=== PATIENT | male | born 1955 | race Caucasian/White ===

== ENCOUNTER 2023-11-07 14:38 | Emergency (ER) | payer OTHER ==
[~2023-11-07] VITALS: Ht 177.8 cm; Wt 80.3 kg
[2023-11-07 14:46] VITALS: BP 123/72; PULSE 93; RESP 17; TEMP 97.5; O2SAT 96
[2023-11-07] MEDS ORDERED: ALUMINUM HYD/MAG/SIMETHICONE 30 ML UDC PO ONE (15:20)
[2023-11-07] MEDS ORDERED: ONDANSETRON 4 MG ODT PO ONE (15:20)
== END 2023-11-07 16:38 | disposition left against medical advice (07) ==
LOC: MED 14:38
DX: R10.84 Generalized abdominal pain (principal); R19.7 Diarrhea, unspecified; R11.2 Nausea with vomiting, unspecified; F17.210 Nicotine dependence, cigarettes, uncomplicated
CPT/HCPCS: 99281; Q0162

== ENCOUNTER 2023-11-13 15:42 | Emergency (ER) | payer OTHER ==
[~2023-11-13] VITALS: Ht 180.3 cm; Wt 81.6 kg
[2023-11-13 16:13] VITALS: BP 124/67; PULSE 93; RESP 18; TEMP 98.7; O2SAT 95
[2023-11-13 17:23] LABS: APPEARANCE,URINE CLEAR (CLEAR); BILIRUBIN,URINE NEGATIVE (NEGATIVE); BLOOD, URINE NEGATIVE (NEGATIVE); COLOR,URINE YELLOW (YELLOW); LEUKOCYTE ESTERASE ,URINE NEGATIVE (NEGATIVE); NITRITE, URINE NEGATIVE (NEGATIVE); PROTEIN,URINE TRACE (NEGATIVE); UGLUCOSE NEGATIVE (NEGATIVE); UROBILINOGEN,URINE 0.2 EU/dL (0.2 - 1)
[2023-11-13] MEDS ORDERED: KETOROLAC 30 MG/ML VIAL IM ONE (17:55)
[2023-11-13 18:04] LABS: BASOPHILS # (AUTO) 0.1 K/uL (0.00-0.22); BASOPHILS % (AUTO) 0.4 % (0.0-2.0); EOSINOPHILS % (AUTO) 0.3 % (0.0-4.0); HEMATOCRIT 43.9 % (36-52); HEMOGLOBIN 15.2 g/dL (12.0-18.0); LYMPHOCYTES # (AUTO) 1.1 K/uL (2.0-11.5); LYMPHOCYTES % (AUTO) 8.7 % (20.5-51.1); MEAN CORPUSCULAR HEMOGLOBIN 31 pg (27-31); MEAN CORPUSCULAR HGB CONC 35 g/dL (33-37); MEAN CORPUSCULAR VOLUME 90.8 fL (80-94); MONOCYTES # (AUTO) 2.8 K/uL (0.8-1.0); MONOCYTES % (AUTO) 22.8 % (1.7-9.3); NEUTROPHILS # (AUTO) 8.4 K/uL (1.8-7.7); NEUTROPHILS % (AUTO) 67.8 % (42.2-75.2); PLATELET COUNT (AUTO) 341 K/uL (140-450); RED BLOOD CELL COUNT(AUTO) 4.83 MIL/uL (4.20-6.10); RED CELL DISTRIBUTION WIDTH 13.4 % (11.6-13.7); WHITE BLOOD COUNT (AUTO) 12.4 K/uL (4.8-10.8)
[2023-11-13 18:16] LABS: ALANINE AMINOTRANSFERASE 40 U/L (12-78); ALBUMIN 3.2 g/dL (3.4-5.0); ALKALINE PHOSPHATASE 106 U/L (50-136); ANION GAP 14.2 (8-16); ASPARTATE AMINOTRANSFERASE 23 U/L (15-37); CALCIUM 8.3 mg/dL (8.5-10.1); CARBON DIOXIDE 23.1 mmol/L (21-32); CHLORIDE 98 mmol/L (98-107); CREATININE 1.8 mg/dL (0.6-1.3); GFR ARICAN-AMERICAN 48 mL/min (>90); GFR NON ARICAN-AMERICAN 40 mL/min (>90); GLUCOSE 103 mg/dL (74-106); LIPASE 73 U/L (16-77); POTASSIUM 3.3 mmol/L (3.5-5.1); SODIUM SERUM 132 mmol/L (136-145); TOTAL BILIRUBIN 0.3 mg/dL (0.0-1.0); TOTAL PROTEIN, SERUM 7.9 g/dL (6.4-8.2); UREA NITROGEN, BLOOD 40 mg/dL (7-18)
[2023-11-13] MEDS ORDERED: LOPE1TAB14 PO (19:01)
[2023-11-13] MEDS ORDERED: ACET-10509 PO (19:01)
[2023-11-13] MEDS ORDERED: NACL 0.9% 1,000 ML IV ONE (19:05)
[2023-11-13] MEDS ORDERED: KETOROLAC 30 MG/ML VIAL IVP ONE (19:05)
== END 2023-11-13 20:06 | disposition home or self-care (01) ==
LOC: MED 15:42
DX: R10.9 Unspecified abdominal pain (principal); R11.2 Nausea with vomiting, unspecified; R19.7 Diarrhea, unspecified; N17.9 Acute kidney failure, unspecified; J45.909 Unspecified asthma, uncomplicated; Z79.899 Other long term (current) drug therapy
CPT/HCPCS: 36415; 74018; 80053; 81003; 83690; 84484; 85025; 93005; 99285

== ENCOUNTER 2023-11-26 14:49 | Emergency (ER) | payer OTHER ==
[~2023-11-26] VITALS: Ht 180.3 cm; Wt 81.6 kg
[~2023-11-26 14:49] MED LIST: ACET-10509 PO; LOPE1TAB14 PO
[2023-11-26 14:54] VITALS: BP 120/74; PULSE 76; RESP 17; TEMP 99.4; O2SAT 94
[2023-11-26] MEDS ORDERED: KETOROLAC 30 MG/ML VIAL IM ONE (15:45)
[2023-11-26] MEDS ORDERED: predniSONE 20 MG TAB PO ONE (15:45)
[2023-11-26] MEDS ORDERED: COLCHICINE 0.6 MG TAB PO ONE (15:45)
[2023-11-26] MEDS ORDERED: COLC1TAB PO (15:48)
[2023-11-26] MEDS ORDERED: PRED20TA5 PO (15:48)
[2023-11-26] MEDS ORDERED: IBUP-2218 PO (15:48)
[2023-11-26 16:16] VITALS: BP 145/67; PULSE 73; RESP 17; TEMP 99.4; O2SAT 97
== END 2023-11-26 16:15 | disposition home or self-care (01) ==
LOC: MED 14:49
DX: M10.9 Gout, unspecified (principal); F17.210 Nicotine dependence, cigarettes, uncomplicated; Z79.899 Other long term (current) drug therapy; Z72.89 Other problems related to lifestyle
CPT/HCPCS: 96372; 99283; J1885; J7512

== ENCOUNTER 2023-12-27 19:11 | Emergency (ER) | payer OTHER ==
[~2023-12-27] VITALS: Ht 180.3 cm; Wt 83.9 kg
[~2023-12-27 19:11] MED LIST changes: +COLC1TAB PO; +IBUP-2218 PO; +PRED20TA5 PO
[2023-12-27 19:19] VITALS: BP 144/98; PULSE 100; RESP 20; TEMP 98.3; O2SAT 94
[2023-12-27] MEDS ORDERED: KETOROLAC 30 MG/ML VIAL IVP ONE (19:30)
[2023-12-27] MEDS ORDERED: IPRATROPIUM 0.02% 0.5 MG/2.5 ML NEBU INH ONE (19:30)
[2023-12-27] MEDS ORDERED: ACETAMINOPHEN EXTRA STRENGTH 500 MG TAB PO ONE (19:30)
[2023-12-27] MEDS ORDERED: ALBUTEROL 0.083% 2.5 MG/3 ML NEBU INH ONE (19:30)
[2023-12-27 19:42] VITALS: BP 144/98; PULSE 100; RESP 20; TEMP 98.3
[2023-12-27 20:00] VITALS: O2SAT 100
[2023-12-27 20:15] VITALS: O2SAT 100
[2023-12-27 21:01] LABS: ANION GAP 11.9 (8-16); CALCIUM 8.7 mg/dL (8.5-10.1); CARBON DIOXIDE 28.8 mmol/L (21-32); CREATININE 1.1 mg/dL (0.6-1.3); POTASSIUM 3.7 mmol/L (3.5-5.1)
[2023-12-27 21:26] LABS: BASOPHILS % (AUTO) 0.4 % (0.0-2.0); EOSINOPHILS # (AUTO) 0.1 K/uL (0-0.4); EOSINOPHILS % (AUTO) 0.9 % (0.0-4.0); HEMATOCRIT 36.8 % (36-52); HEMOGLOBIN 12.4 g/dL (12.0-18.0); LYMPHOCYTES % (AUTO) 22.6 % (20.5-51.1); MEAN CORPUSCULAR HEMOGLOBIN 30 pg (27-31); MEAN CORPUSCULAR HGB CONC 34 g/dL (33-37); MEAN CORPUSCULAR VOLUME 90.2 fL (80-94); MONOCYTES # (AUTO) 1.2 K/uL (0.8-1.0); MONOCYTES % (AUTO) 14.1 % (1.7-9.3); NEUTROPHILS # (AUTO) 5.4 K/uL (1.8-7.7); PLATELET COUNT (AUTO) 366 K/uL (140-450); RED BLOOD CELL COUNT(AUTO) 4.08 MIL/uL (4.20-6.10); RED CELL DISTRIBUTION WIDTH 13.7 % (11.6-13.7); WHITE BLOOD COUNT (AUTO) 8.7 K/uL (4.8-10.8)
[2023-12-27] MEDS ORDERED: AZIT250T4 PO ×2 (21:53→22:59)
[2023-12-27] MEDS ORDERED: AMOX1TAB8 PO ×2 (21:53→22:59)
[2023-12-28] MEDS ORDERED: AMOX1TAB8 PO (13:25)
[2023-12-28] MEDS ORDERED: AZIT250T4 PO (13:25)
== END 2023-12-27 22:05 | disposition home or self-care (01) ==
LOC: MED 19:11
DX: J18.9 Pneumonia, unspecified organism (principal); Z79.899 Other long term (current) drug therapy
CPT/HCPCS: 36415; 71045; 80048; 84484; 85025; 93005; 99285